=== PATIENT | female | born 2000 | race Caucasian/White ===

== ENCOUNTER → 2021-01-24 20:05 | Outpatient (CLI) | payer OTHER, SELFPAY | PROVIDERS: Visit Provider Nurse Practitioner Family | DX: Z20.822 Contact with and (suspected) exposure to COVID-19 (principal); J02.9 Acute pharyngitis, unspecified | CPT/HCPCS: C9803; U0003; U0005 ==

== ENCOUNTER → 2021-03-16 10:19 | Outpatient (CLI) | payer OTHER, SELFPAY ==
--- NOTE | 2021-03-16 10:32 | XR_ITS ---
FINAL REPORT CLINICAL HISTORY: INJURY OF RIGHT ANKLE FINDINGS: RIGHT ANKLE: Three views of the right ankle were obtained. There is no acute fracture or dislocation. There is a small bony overgrowth along the medial tibial metaphysis of uncertain etiology. The joint spaces and mortise are intact. There is no soft tissue abnormality. IMPRESSION: No acute fracture. Small bony overgrowth along the medial tibial metaphysis of uncertain etiology. This could represent a small osteochondroma. If indicated, MRI. Reviewed, Interpreted and Dictated by Augie Fitzpatrick III, MD Transcribed by Garfield Velez Authenticated by Augie Fitzpatrick III, MD on 03/16/2021 12:02:17 PM [facility]
== END ==
PROVIDERS: Visit Provider Physician Assistant
DX: M25.571 Pain in right ankle and joints of right foot (principal); S99.911A Unspecified injury of right ankle, initial encounter
CPT/HCPCS: 73610